=== PATIENT | female | born 1955 | race Caucasian/White ===

== ENCOUNTER 2018-08-05 20:08 | Emergency (ER) | payer BC ==
[2018-08-05] MEDS ORDERED: IBUPROFEN 600 MG TAB PO STA (20:55)
--- NOTE | 2018-08-05 21:16 | ED ---
Lower Extremity Injury HPI - General Source: patient, family Mode of arrival: wheelchair Limitations: physical limitation <Anum Alexandre - Last Filed: 08/05/18 22:07> <Grace Eckert - Last Filed: 08/05/18 22:47> - General Chief Complaint: Extremity Injury, Lower Stated Complaint: Fall,ankle injury Time Seen by Provider: 08/05/18 20:36 - History of Present Illness Initial Comments: 62-year-old female presenting today for chief complaint of fall and left ankle pain. Patient states that she was in the parking lot at [email or web address] when she stepped into a pothole twisting her left ankle she states she then felt to her right knee and extended her left wrist. She states she has pain in her anterior right knee as well as left ankle with most pain in the left ankle as well as some soft tissue swelling and ecchymosis. Patient denies falling hitting her head injury to the neck or back. Patient denies any abdominal injury. Patient denies any significant tenderness of the left wrist. She states they are superficial abrasions. Remaining review of systems negative, patient denies any recent fever, chills, shortness of breath, chest pain, back pain, abdominal pain, nausea or vomiting, numbness or tingling, dysuria or hematuria, constipation or diarrhea, headaches or visual changes, or any other complaints. (Anum Alexandre) - Related Data Previous Rx's Medication Instructions Recorded Ibuprofen 800 mg PO Q8H PRN 7 Days #21 tablet 08/05/18 Allergies Allergy/AdvReac Type Severity Reaction Status Date / Time No Known Allergies Allergy Verified 08/05/18 20:32 Review of Systems ROS Other: All systems not noted in ROS Statement are negative. <Anum Alexandre - Last Filed: 08/05/18 22:07> ROS Other: All systems not noted in ROS Statement are negative. <Grace Eckert - Last Filed: 08/05/18 22:47> ROS Statement: Those systems with pertinent positive or pertinent negative responses have been documented in the HPI. Past Medical History Past Medical History: No Reported History History of Any Multi-Drug Resistant Organisms: None Reported Past Surgical History: No Surgical Hx Reported Past Psychological History: No Psychological Hx Reported Smoking Status: Never smoker Past Alcohol Use History: Occasional Past Drug Use History: None Reported <Anum Alexandre - Last Filed: 08/05/18 22:07> General Exam Limitations: physical limitation <Anum Alexandre - Last Filed: 08/05/18 22:07> - General Exam Comments Initial Comments: General: The patient is awake and alert, in no distress, and does not appear acutely ill. Eye: +3 mm pupils are equal, round and reactive to light, extra-ocular movements are intact. No nystagmus. There is normal conjunctiva bilaterally. No signs of icterus. Ears, nose, mouth and throat: There are moist mucous membranes and no oral lesions. No raccoon or Maldonado sign. No midline tenderness to patient of the cervical spine. Neck: The neck is supple, there is no tenderness or JVD. Cardiovascular: There is a regular rate and rhythm. No murmur, rub or gallop is appreciated. Respiratory: Lungs are clear to auscultation, respirations are non-labored, breath sounds are equal. No wheezes, stridor, rales, or rhonchi. Gastrointestinal: Soft, non-distended, non-tender abdomen without masses or organomegaly noted. There is no rebound or guarding present. No CVA tenderness. Bowel sounds are unremarkable. Musculoskeletal: Upon inspection of the ankles bilaterally there is significant lateral soft tissue swelling of the left ankle with mild ecchymosis. Patient is able to range the ankle however refuses to fully secondary to pain. Patient tender to palpation over the lateral malleolus. Normal ROM, no tenderness of the right ankle and left knee. Strength 5/5 of the lower extremities including hips, knees and ankles bilaterally. Tender to palpation over the right anterior knee. Sensation intact of the LE equal in comparison b/l. DP pulses equal bilaterally 2+. Neurological: A&O x 3. CN II-XII intact, There are no obvious motor or sensory deficits. Coordination appears grossly intact. Speech is normal. Skin: Skin is warm and dry and no rashes or lesions are noted. Psychiatric: Cooperative, appropriate mood & affect, normal judgment. (Anum Alexandre Erin) Course Vital Signs 08/05/18 08/05/18 20:28 21:53 Temperature 98.6 F 97.3 F L Pulse Rate 79 87 Respiratory 16 18 Rate Blood Pressure 136/83 136/88 O2 Sat by Pulse 97 Oximetry Procedures - Orthopedic Splinting/Casting Injury #1 Lower Extremity Injury Location: short leg Lower Extremity Immobilizer: posterior splint, stirrup splint, synthetic pre- padded splint (3x35 (2)) <Anum Alexandre - Last Filed: 08/05/18 22:07> Medical Decision Making <Anum Alexandre - Last Filed: 08/05/18 22:07> <Grace Eckert - Last Filed: 08/05/18 22:47> - Medical Decision Making 62-year-old female presenting for fall with left ankle and right knee pain. Patient denies head injury. Patient appears well. Patient given ibuprofen refused any other pain medications. Neurovascularly intact. Compartments soft and compressible. Imaging studies revealed distal fibula fracture of the left ankle, nondisplaced. Patient placed in a posterior mold splint with stirrups. Patient given prescription for crutches. Patient given orthopedic surgery follow-up. Imaging studies of the right knee negative. No significant abnormalities upon physical examination. At this time feel patient is stable for discharge with outpatient follow-up. Discussed the case attained provider Dr. eckert and reviewed all imaging studies prior to patient discharge. (Anum Alexandre) I was available for consultation in the emergency department. The history and physical exam were done by the midlevel provider. I was consulted for this patient's care. I reviewed the case with the midlevel provider and based on their presentation of the patient, I agree with the assessment, medical decision making and plan of care as documented. (Grace Eckert) Disposition Is patient prescribed a controlled substance at d/c from ED?: No Time of Disposition: 21:30 <Anum Alexandre - Last Filed: 08/05/18 22:07> <Grace Eckert - Last Filed: 08/05/18 22:47> Clinical Impression: Fracture of distal fibula, Left ankle sprain, Right knee pain Disposition: HOME SELF-CARE Condition: Good Instructions (If sedation given, give patient instructions): Ankle Fracture (ED), Knee Sprain (ED) Additional Instructions: Please use medication as discussed. Please follow-up with orthopedic surgery in the next 2-3 days. Please use crutches for ambulation.. Please return to emergency room if the symptoms increase or worsen or for any other concerns. Prescriptions: Ibuprofen 800 mg PO Q8H PRN 7 Days #21 tablet PRN Reason: Pain Referrals: Bib Dos Santos DO [Primary Care Provider] - 1-2 days Joao Rowell MD [STAFF PHYSICIAN] - 1-2 days
--- NOTE | 2018-08-05 21:25 | XR ---
EXAMINATION TYPE: XR ankle complete LT DATE OF EXAM: 08/05/2018 COMPARISON: NONE HISTORY: Ankle pain and swelling TECHNIQUE: 3 views FINDINGS: There is soft tissue swelling over the lateral malleolus. There is nondisplaced transverse fracture of the tip of the distal fibula. Ankle mortise is anatomic. Joint spaces are normal. IMPRESSION: Acute nondisplaced fracture of the tip of the distal fibula.
--- NOTE | 2018-08-05 21:28 | XR ---
EXAMINATION TYPE: XR knee complete RT DATE OF EXAM: 08/05/2018 COMPARISON: NONE HISTORY: Knee pain TECHNIQUE: 3 views FINDINGS: There is no sign of fracture nor dislocation. Joint spaces are normal. There is no sign of knee joint effusion. IMPRESSION: Negative right knee exam.
[2018-08-05 21:54] VITALS: BP 136/88; PULSE 87; RESP 18; TEMP 97.3
== END 2018-08-05 21:53 | disposition home or self-care (01) ==
LOC: EC 20:08
DX: S82.65XA Nondisplaced fracture of lateral malleolus of left fibula, initial encounter for closed fracture (principal); S93.402A Sprain of unspecified ligament of left ankle, initial encounter; M25.561 Pain in right knee; W01.0XXA Fall on same level from slipping, tripping and stumbling without subsequent striking against object, initial encounter; Y92.481 Parking lot as the place of occurrence of the external cause
CPT/HCPCS: 29515; 99283